=== PATIENT | male | born 1935 | race Caucasian/White ===

== ENCOUNTER 2018-02-01 03:28 | Inpatient (IN) | payer OTHER ==
[~2018-02-01] VITALS: Ht 162.6 cm; Wt 52.2 kg
--- NOTE | 2018-02-01 14:42 | Operative Report ---
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 Evaluation revealed a chronic residual urine of about 500 mL. Cystoscopy showed trilobar prostatic hypertrophy with definite bladder outlet obstruction and a heavily trabeculated bladder. He had been treated with doxazosin and finasteride without improvement. Patient is now scheduled for TURP Operative/Procedure Note Note: The patient was taken to the cystoscopy room and identified. Placed in supine position on the cystoscopy table. A timeout was executed appropriately with the patient awake. Gen. anesthesia was induced via LMA. He was then placed in the dorsolithotomy position. Bimanual rectal exam revealed an enlarged prostate with no other abnormal pelvic masses. He was prepped and draped in usual fashion for cystoscopy. Surgical pause was executed appropriately. 22 Indian cystoscope sheath was placed into the bladder under direct vision using the 30 lens. Anterior urethra was normal. The prostatic urethra showed trilobar prostatic hypertrophy with definite bladder outlet obstruction. Prostatic urethra was 3-1/2 cm in length. Upon entering the bladder residual urine was noted to be significant. Urine was collected for culture. Cystoscopy revealed a heavily trabeculated bladder. The ureteral orifices could not be identified at this point due to the heavily trabeculated bladder addition to the very enlarged middle lobe of the prostate. The bladder was left full and the cystoscope removed. The urethra was dilated with [place] sounds to 28 Indian. The 26 Indian resectoscope sheath was placed into the bladder using obturator and the bipolar working element was inserted. A state was resected between 5 and 7:00 positions. Next the left lateral lobe of the prostate was resected between 1:00 and 5:00 positions using the bladder neck as the proximal landmark and verumontanum as a distal landmark. Hemostasis was obtained electrocautery. Next the right lateral lobe of the prostate was resected between 11:00 and 7:00 positions using same landmarks. Hemostasis was obtained electrocautery. The floor the prostatic urethra between the 5 and 7:00 positions was resected using the same landmarks. Stasis was obtained electrocautery. Finally the roof of the prostatic fossa between 11:00 and 1:00 positions was resected again using same landmarks. At this point all prostate chips were irrigated from the bladder. Hemostasis is then obtained with electrocautery. At this point ureteral orifices were able to be identified and were preserved. No significant bleeding was noted at this time. The patient's blood pressure was 105 systolic. The resectoscope removed. A 22 Indian three-way Kumari catheter was inserted and continuous bladder irrigation begun with clear drainage. Patient tolerated the procedure well and as completion was taken recovery room in stable condition. Findings: Trilobar prostatic hypertrophy with heavily trabeculated bladder and definite bladder outlet obstruction Discharge Disposition: PACU
--- NOTE | 2018-02-01 15:01 | PN- Urology ---
Subjective Subjective: This note was entered into the incorrect patient's chart. Please disregard this mayo Objective Vital Signs and I&Os This note was entered into the incorrect patient's chart. Please disregard this note Assessment/Plan Assessment/Plan This note was entered into the incorrect patient's chart. Please disregard this note Patient 115 lb Weight Patient voiding spontaneously. PVR by bladder scan reported as zero Creatinine continues to be normal
[2018-02-01 16:37] VITALS: BP 110/60
[2018-02-01 21:47] VITALS: BP 122/60
[2018-02-02 06:20] VITALS: BP 120/66
--- NOTE | 2018-02-02 07:12 | PN- Urology ---
Subjective Subjective: Comfortable Objective Vital Signs and I&Os Vital Signs Date Time Temp Pulse Resp B/P B/P Pulse O2 O2 Flow FiO2 Mean Ox Delivery Rate 02/03 620 98.2 85 18 120/66 98 Room Air 02/01 2147 97.9 84 20 122/60 100 Room Air 02/02 2028 Room Air 02/01 1637 97.0 78 18 110/60 97 Room Air Intake & Output 02/02 0000 02/01 1600 02/01 0802/01 0000 01/31 1600 Intake Total 810 350 Output Total 1500 Balance -690 350 Intake, IV 450 350 Intake, Oral 360 Output, Urine 1500 Patient 115 lb 115 lb Weight Back: no CVA tenderness Abd: soft and non tender Genitalia: 3-way kumari in place. CBI running. Drainage pink to red Extrems: no calf tenderness Labs pending Assessment/Plan Assessment/Plan Imp: 1. POD #1 s/p TURP. Some mild post op hematuria Plan: 1. Continue CBI for now 2. When drainage is clear stop CBI and continue kumari 3. Hep lock IV 4. Ambulate Core Measures Venous Thromboembolism VTE Risk Factors Age>40 No Mechanical VTE Prophylaxis d/t Other No VTE Pharm Prophylaxis d/t Other
[2018-02-02 08:40] LABS: ABSOLUTE BASOPHIL COUNT 0 /CUMM (0.0-0.2); ABSOLUTE EOSINOPHIL COUNT 0 /CUMM (0.0-0.7); ABSOLUTE MONOCYTE COUNT 1.8 /CUMM (0.10-0.60)
[2018-02-02 09:24] LABS: ABSOLUTE GRANULOCYTE CT 6.5 /CUMM (1.4-6.5); ABSOLUTE LYMPH COUNT 0.8 /CUMM (1.2-3.4); BASOPHIL % 0.3 % (0.0-2.0); EOSINOPHIL % 0.4 % (0-5); GRANULOCYTE % 70.4 % (42.2-75.2); HEMATOCRIT 32.3 % (42-52); MEAN CORPUSCULAR HGB 29.6 PG (27.0-31.0); MEAN CORPUSCULAR HGB CONC 33.7 G/DL (33.0-37.0); MEAN CORPUSCULAR VOLUME 88.1 FL (80.0-94.0); MEAN PLATELET VOLUME 9.2 FL (7.4-10.4); PLATELET COUNT 138 /CUMM (130-400); RBC DISTRIBUTION WIDTH 17.5 % (11.5-14.5); RED BLOOD CELL CT 3.67 /CUMM (4.70-6.10)
[2018-02-02 09:25] LABS: WHITE BLOOD CELL COUNT 9.2 /CUMM (4.8-10.8)
[2018-02-02 14:08] VITALS: BP 118/58
[2018-02-02 22:18] VITALS: BP 112/70
[2018-02-03 06:20] VITALS: BP 140/74
--- NOTE | 2018-02-03 07:37 | PN- Urology ---
Subjective Subjective: Comfortable Objective Vital Signs and I&Os Vital Signs Date Time Temp Pulse Resp B/P B/P Pulse O2 O2 Flow FiO2 Mean Ox Delivery Rate 02/04 620 98.4 63 18 140/74 96 Room Air 02/02 2218 98.2 77 20 112/70 97 Room Air 02/02 1408 98.0 82 20 118/58 100 Room Air 02/02 0800 Room Air Intake & Output 02/03 0000 02/02 1600 02/02 0802/02 0000 02/01 1600 Intake Total 130 130 290 810 350 Output Total 233 894 8377 Balance 130 -220 -510 -1290 350 Intake, IV 10 10 50 450 350 Intake, Oral 120 120 240 360 Output, Urine 241 [id number] 2494 Patient 115 lb 115 lb Weight Abd: soft and non tender Genitalia: 3-way kumari in place. CBI running at slow rate with pink drainage. Too bloody to stop CBI at this point Assessment/Plan Assessment/Plan Imp: 1. POD #2 s/p TURP with some post op hematuria Plan: 1. Continue CBI for now 2. CBC and BMP tomorrow AM Core Measures Venous Thromboembolism VTE Risk Factors Age>40 No Mechanical VTE Prophylaxis d/t Other No VTE Pharm Prophylaxis d/t Other
[2018-02-03 14:32] VITALS: BP 130/72
[2018-02-03 22:46] VITALS: BP 120/60
[2018-02-04 06:18] VITALS: BP 128/78
--- NOTE | 2018-02-04 07:18 | PN- Urology ---
Subjective Subjective: Comfortable Objective Vital Signs and I&Os Vital Signs Date Time Temp Pulse Resp B/P B/P Pulse O2 O2 Flow FiO2 Mean Ox Delivery Rate 02/04 618 97.5 60 20 128/78 99 Room Air 02/03 2246 98.3 71 19 120/60 98 Room Air 02/03 1432 98.1 74 18 130/72 98 Room Air Intake & Output 02/04 0800 02/04 0000 02/03 1600 02/03 0800 02/03 0000 02/02 1600 Intake Total 130 700 460 130 130 290 Output Total 500 350 800 Balance 130 700 -40 130 -220 -510 Intake, IV 10 10 10 50 Intake, Oral 120 700 460 120 120 240 Output, Urine 500 350 800 Abd: soft and non tender Genitalia: 3-way kumari in place. CBI running at slow rate with clear to light pink drainage Today's labs pending Assessment/Plan Assessment/Plan Imp: 1. POD #3 s/p TURP with some post op hematuria. Appears to be slowly improving Plan: 1. Clamp CBI 2. Continue kumari 3. Check labs today Core Measures Venous Thromboembolism VTE Risk Factors Age>40 No Mechanical VTE Prophylaxis d/t Other No VTE Pharm Prophylaxis d/t Other
[2018-02-04 08:02] LABS: ABSOLUTE BASOPHIL COUNT 0 /CUMM (0.0-0.2); ABSOLUTE EOSINOPHIL COUNT 0 /CUMM (0.0-0.7); ABSOLUTE LYMPH COUNT 1.4 /CUMM (1.2-3.4); BASOPHIL % 0.3 % (0.0-2.0); EOSINOPHIL % 0.5 % (0-5); GRANULOCYTE % 59.2 % (42.2-75.2); HEMATOCRIT 32.6 % (42-52); MEAN CORPUSCULAR HGB 29.8 PG (27.0-31.0); MEAN CORPUSCULAR HGB CONC 33.4 G/DL (33.0-37.0); MEAN CORPUSCULAR VOLUME 89.2 FL (80.0-94.0); MEAN PLATELET VOLUME 9.3 FL (7.4-10.4); PLATELET COUNT 138 /CUMM (130-400); RBC DISTRIBUTION WIDTH 17.8 % (11.5-14.5); RED BLOOD CELL CT 3.65 /CUMM (4.70-6.10); WHITE BLOOD CELL COUNT 8.5 /CUMM (4.8-10.8)
[2018-02-04 14:05] VITALS: BP 138/70
[2018-02-04 22:47] VITALS: BP 117/62
[2018-02-05 06:01] VITALS: BP 110/62
--- NOTE | 2018-02-05 07:25 | PN- Urology ---
Subjective Subjective: Patient comfortable. Objective Vital Signs and I&Os Vital Signs Date Time Temp Pulse Resp B/P B/P Pulse O2 O2 Flow FiO2 Mean Ox Delivery Rate 02/05 0601 97.8 84 20 110/62 94 Room Air 02/04 2247 97.9 68 20 117/62 98 Room Air 02/04 1405 97.7 89 20 138/70 99 Room Air Intake & Output 02/05 0802/05 0000 02/04 1600 02/04 0800 02/04 0000 02/03 1600 Intake Total 100 800 130 700 460 Output Total 2000 400 1200 500 Balance -2000 -300 -400 130 700 -40 Intake, IV 10 Intake, Oral 100 800 120 700 460 Output, Urine 1999 400 1200 500 Abd: soft and non tender Genitalia: kumari in place. CBI is off. Urine is light pink Hct stable Assessment/Plan Assessment/Plan Imp: 1. POD #4 s/p TURP with some post op hematuria. Slowly improving and Hct stable Plan: 1. Kumari removed for voiding trial 2. If voids adequately and urine not too bloody will discharge home later today Core Measures Venous Thromboembolism VTE Risk Factors Age>40 No Mechanical VTE Prophylaxis d/t Other No VTE Pharm Prophylaxis d/t Other
== END 2018-02-05 14:02 | DRG 713 ==
LOC: STS 03:28 → PACUH 14:52 → 2NA 14:52 → ENRESERV 15:04 → ENTRNSPT 15:53 → EDTRNSPTSTS 16:04 → EDTRNSPT 16:04 → 2NA 16:28 → CMPTRNSPT 16:33 → ENPENDDIS 02-05 12:59 → 2NA 02-05 14:02
PROVIDERS: Urology
PROC: 0VB08ZZ Excision of Prostate, Via Natural or Artificial Opening Endoscopic (ICD-10-PCS; principal; 2018-02-01)
PROC: 3E1K78Z Irrigation of Genitourinary Tract using Irrigating Substance, Via Natural or Artificial Opening (ICD-10-PCS; 2018-02-01)
PROC: 0T7D8DZ Dilation of Urethra with Intraluminal Device, Via Natural or Artificial Opening Endoscopic (ICD-10-PCS; 2018-02-01)
DX: N40.1 Benign prostatic hyperplasia with lower urinary tract symptoms (principal); N13.8 Other obstructive and reflux uropathy; R33.8 Other retention of urine; N32.89 Other specified disorders of bladder; H91.90 Unspecified hearing loss, unspecified ear; I10 Essential (primary) hypertension
CPT/HCPCS: 2NASP; 36592; 82436; 87086; 88305; J0131; J0690; J1644; J7042